=== PATIENT | female | born 1950 | race Hispanic/Latino ===

== ENCOUNTER 2018-09-27 12:48 | Outpatient (CLI) | payer MEDICARE | END 2018-09-27 12:49 | disposition home or self-care (01) | LOC: OPLAB 12:48 | DX: R97.8 Other abnormal tumor markers (principal); C50.919 Malignant neoplasm of unspecified site of unspecified female breast; E78.5 Hyperlipidemia, unspecified; D64.9 Anemia, unspecified ==

== ENCOUNTER 2018-09-28 12:49 | Outpatient (CLI) | payer MEDICARE | END 2018-09-28 12:50 | disposition home or self-care (01) | LOC: OPLAB 12:49 ==

== ENCOUNTER 2018-10-23 11:32 | Outpatient (CLI) | payer MEDICARE | END 2018-10-23 11:33 | disposition home or self-care (01) | LOC: OPLAB 11:32 | DX: D64.9 Anemia, unspecified (principal); E78.5 Hyperlipidemia, unspecified; E83.40 Disorders of magnesium metabolism, unspecified; M81.0 Age-related osteoporosis without current pathological fracture ==

== ENCOUNTER 2018-10-24 13:01 | Outpatient (CLI) | payer MEDICARE | END 2018-10-24 13:02 | disposition home or self-care (01) | LOC: OPLAB 13:01 ==

== ENCOUNTER 2018-11-20 10:35 | Outpatient (CLI) | payer MEDICARE | END 2018-11-20 10:36 | disposition home or self-care (01) | LOC: RAD 10:35 ==

== ENCOUNTER 2018-11-21 13:39 | Outpatient (CLI) | payer MEDICARE | END 2018-11-21 13:40 | disposition home or self-care (01) | LOC: OPLAB 13:39 | DX: D64.9 Anemia, unspecified (principal); E78.5 Hyperlipidemia, unspecified; E83.40 Disorders of magnesium metabolism, unspecified; M81.0 Age-related osteoporosis without current pathological fracture ==

== ENCOUNTER 2018-11-22 12:37 | Outpatient (CLI) | payer MEDICARE | END 2018-11-22 12:38 | disposition home or self-care (01) | LOC: OPLAB 12:37 | DX: D64.9 Anemia, unspecified (principal); E78.5 Hyperlipidemia, unspecified; E83.40 Disorders of magnesium metabolism, unspecified; M81.0 Age-related osteoporosis without current pathological fracture ==

== ENCOUNTER 2018-12-18 10:21 | Outpatient (CLI) | payer MEDICARE | END 2018-12-18 10:22 | disposition home or self-care (01) | LOC: RAD 10:21 ==

== ENCOUNTER 2018-12-19 13:51 | Outpatient (CLI) | payer MEDICARE | END 2018-12-19 13:52 | disposition home or self-care (01) | LOC: OPLAB 13:51 ==

== ENCOUNTER 2018-12-20 13:10 | Outpatient (CLI) | payer MEDICARE | END 2018-12-20 13:11 | disposition home or self-care (01) | LOC: OPLAB 13:10 ==

== ENCOUNTER 2019-01-16 12:44 | Outpatient (CLI) | payer MEDICARE | END 2019-01-16 12:45 | disposition home or self-care (01) | LOC: OPLAB 12:44 ==

== ENCOUNTER 2019-01-17 12:56 | Outpatient (CLI) | payer MEDICARE | END 2019-01-17 12:57 | disposition home or self-care (01) | LOC: OPLAB 12:56 ==

== ENCOUNTER 2019-02-13 13:07 | Outpatient (CLI) | payer MEDICARE | END 2019-02-13 13:08 | disposition home or self-care (01) | LOC: OPLAB 13:07 ==

== ENCOUNTER 2019-02-14 12:36 | Outpatient (CLI) | payer MEDICARE | END 2019-02-14 12:37 | disposition home or self-care (01) | LOC: OPLAB 12:36 ==

== ENCOUNTER 2019-02-20 12:02 | Outpatient (CLI) | payer MEDICARE | END 2019-02-20 12:03 | disposition home or self-care (01) | LOC: RAD 12:02 ==